=== PATIENT | male | born 1960 | race Caucasian/White ===

== ENCOUNTER 2021-01-21 09:40 | Observation (INO) | payer BC ==
[2021-01-21] MEDS ORDERED: SODIUM CHLORIDE 0.9% 500 ML 500 ML IV STA (09:52)
--- NOTE | 2021-01-21 10:00 | ED ---
General Adult HPI - General Chief complaint: Arrhythmia/Palpitations Stated complaint: Abnormal EKG/Irregular Heartbeat Time Seen by Provider: 01/21/21 09:40 Source: patient, RN notes reviewed, old records reviewed Mode of arrival: ambulatory Limitations: no limitations - History of Present Illness Initial comments: This is a 60-year-old male who presents emergency department stating that he went in for a physical today and they told him he had no irregular heartbeat probably atrial fibrillation they sent him into the emergency department. Patient denies any chest pain difficulty breathing or palpitations per patient denies any shortness of breath per patient denies any recent fever chills or cough. Patient states he did get Coban vaccine. Patient denies any previous history of similar. Patient denies any abdominal pain patient denies nausea vomiting or diarrhea. Patient denies any back pain. Patient denies any swelling to the legs or calf tenderness. Patient denies any history of diabetes hypertension high cholesterol. - Related Data Home Medications Medication Instructions Recorded Confirmed Montelukast Sodium [Singulair] 10 mg PO HS 01/21/21 01/21/21 Solifenacin Succinate [Vesicare] 10 mg PO HS 01/21/21 01/21/21 traZODone HCL [Desyrel] 50 mg PO HS 01/21/21 01/21/21 Allergies Allergy/AdvReac Type Severity Reaction Status Date / Time No Known Allergies Allergy Verified 01/21/21 11:22 Review of Systems ROS Statement: Those systems with pertinent positive or pertinent negative responses have been documented in the HPI. ROS Other: All systems not noted in ROS Statement are negative. Past Medical History History of Any Multi-Drug Resistant Organisms: None Reported Past Surgical History: No Surgical Hx Reported Past Psychological History: Anxiety, Depression Smoking Status: Never smoker Past Alcohol Use History: None Reported Past Drug Use History: None Reported General Exam - General Exam Comments Initial Comments: GENERAL: Patient is well-developed and well-nourished. Patient is nontoxic and well- hydrated and is in no acute distress. ENT: Neck is soft and supple. No significant lymphadenopathy is noted. Oropharynx is clear. Moist mucous membranes. Neck has full range of motion without eliciting any pain. EYES: The sclera were anicteric and conjunctiva were pink and moist. Extraocular movements were intact and pupils were equal round and reactive to light. Eyelids were unremarkable. PULMONARY: Unlabored respirations. Good breath sounds bilaterally. No audible rales rhonchi or wheezing was noted. CARDIOVASCULAR: Patient has no irregular heartbeat at approximately 80 beats a minute. ABDOMEN: Soft and nontender with normal bowel sounds. SKIN: Skin is clear with no lesions or rashes and otherwise unremarkable. NEUROLOGIC: Patient is alert and oriented x3. Cranial nerves II through XII are grossly intact. Motor and sensory are also intact. Normal speech, volume and content. Symmetrical smile. MUSCULOSKELETAL: Normal extremities with adequate strength and full range of motion. No lower extremity swelling or edema. No calf tenderness. LYMPHATICS: No significant lymphadenopathy is noted PSYCHIATRIC: Patient has a very flat affect and does answer all questions accurately. Limitations: no limitations Course Vital Signs 01/21/21 01/21/21 09:41 10:10 Temperature 99.1 F Pulse Rate 82 73 Respiratory 19 16 Rate Blood Pressure 156/90 134/88 O2 Sat by Pulse 98 Oximetry Medical Decision Making - Medical Decision Making EKG shows atrial fibrillation at 82 bpm MI interval 214 QT interval is 380 QTC is 443. Patient's EKG shows T-wave inversions in leads 1 to aVL as well as precordial leads V5 and V6. Patient was started on heparin in the emergency department for new onset A. fib. I spoke with Dr. Flores he agreed to admit the patient admitted the patient I consult cardiology continued heparin on the floor - Lab Data Result diagrams: 01/21/21 09:59 01/21/21 09:59 Lab Results 01/21/21 01/21/21 01/21/21 Range/Units 09:59 09:59 09:59 WBC 5.1 (3.8-10.6) k/uL RBC 5.35 (4.30-5.90) m/uL Hgb 16.7 (13.0-17.5) gm/dL Hct 48.7 (39.0-53.0) % MCV 91.0 (80.0-100.0) fL MCH 31.3 (25.0-35.0) pg MCHC 34.4 (31.0-37.0) g/dL RDW 12.9 (11.5-15.5) % Plt Count 205 (150-450) k/uL MPV 8.0 Neutrophils % 70 % Lymphocytes % 21 % Monocytes % 6 % Eosinophils % 2 % Basophils % 0 % Neutrophils # 3.6 (1.3-7.7) k/uL Lymphocytes # 1.1 (1.0-4.8) k/uL Monocytes # 0.3 (0-1.0) k/uL Eosinophils # 0.1 (0-0.7) k/uL Basophils # 0.0 (0-0.2) k/uL PT 10.0 (9.0-12.0) sec INR 0.9 (<1.2) APTT 24.6 (22.0-30.0) sec Sodium 139 (137-145) mmol/L Potassium 4.3 (3.5-5.1) mmol/L Chloride 104 (98-107) mmol/L Carbon Dioxide 26 (22-30) mmol/L Anion Gap 9 mmol/L BUN 22 H (9-20) mg/dL Creatinine 0.91 (0.66-1.25) mg/dL Est GFR (CKD-EPI)AfAm >90 (>60 ml/min/1.73 sqM) Est GFR (CKD-EPI)NonAf >90 (>60 ml/min/1.73 sqM) Glucose 122 H (74-99) mg/dL Calcium 9.7 (8.4-10.2) mg/dL Magnesium 2.0 (1.6-2.3) mg/dL Total Bilirubin 0.8 (0.2-1.3) mg/dL AST 26 (17-59) U/L ALT 22 (4-49) U/L Alkaline Phosphatase 73 (38-126) U/L Troponin I (0.000-0.034) ng/mL Total Protein 7.3 (6.3-8.2) g/dL Albumin 4.4 (3.5-5.0) g/dL TSH 0.812 (0.465-4.680) mIU/L 01/21/21 Range/Units 09:59 WBC (3.8-10.6) k/uL RBC (4.30-5.90) m/uL Hgb (13.0-17.5) gm/dL Hct (39.0-53.0) % MCV (80.0-100.0) fL MCH (25.0-35.0) pg MCHC (31.0-37.0) g/dL RDW (11.5-15.5) % Plt Count (150-450) k/uL MPV Neutrophils % % Lymphocytes % % Monocytes % % Eosinophils % % Basophils % % Neutrophils # (1.3-7.7) k/uL Lymphocytes # (1.0-4.8) k/uL Monocytes # (0-1.0) k/uL Eosinophils # (0-0.7) k/uL Basophils # (0-0.2) k/uL PT (9.0-12.0) sec INR (<1.2) APTT (22.0-30.0) sec Sodium (137-145) mmol/L Potassium (3.5-5.1) mmol/L Chloride (98-107) mmol/L Carbon Dioxide (22-30) mmol/L Anion Gap mmol/L BUN (9-20) mg/dL Creatinine (0.66-1.25) mg/dL Est GFR (CKD-EPI)AfAm (>60 ml/min/1.73 sqM) Est GFR (CKD-EPI)NonAf (>60 ml/min/1.73 sqM) Glucose (74-99) mg/dL Calcium (8.4-10.2) mg/dL Magnesium (1.6-2.3) mg/dL Total Bilirubin (0.2-1.3) mg/dL AST (17-59) U/L ALT (4-49) U/L Alkaline Phosphatase (38-126) U/L Troponin I <0.012 (0.000-0.034) ng/mL Total Protein (6.3-8.2) g/dL Albumin (3.5-5.0) g/dL TSH (0.465-4.680) mIU/L Critical Care Time Critical Care Time: Yes Total Critical Care Time: 35 Disposition Clinical Impression: New onset atrial fibrillation Disposition: ADMITTED IP TO THIS HOSP Referrals: Bennie Kent MD [Primary Care Provider] - 1-2 days Time of Disposition: 11:48
[2021-01-21 10:13] LABS: Basophils % (A) 0 %; Eosinophils # (A) 0.1 k/uL (0-0.7); Eosinophils % (A) 2 %; HCT 48.7 % (39.0-53.0); HGB 16.7 gm/dL (13.0-17.5); Lymphocytes # (A) 1.1 k/uL (1.0-4.8); Lymphocytes % (A) 21 %; MCH 31.3 pg (25.0-35.0); MCHC 34.4 g/dL (31.0-37.0); Monocytes # (A) 0.3 k/uL (0-1.0); Monocytes % (A) 6 %; Neutrophils # (A) 3.6 k/uL (1.3-7.7); Neutrophils % (A) 70 %; Platelet Count 205 k/uL (150-450); RBC 5.35 m/uL (4.30-5.90); RDW 12.9 % (11.5-15.5); WBC 5.1 k/uL (3.8-10.6)
[2021-01-21] MEDS ORDERED: HEPARIN SODIUM 1,000 UN/ML (10ML VL) IV ONE (10:13)
[2021-01-21 10:31] LABS: INR 0.9 (<1.2); Partial Thromboplastin Time 24.6 sec (22.0-30.0)
[2021-01-21] MEDS: HEPARIN SOD,PORK IN 0.45% NACL 25,000 UNIT in 0.45% NACL 1 250ML.BAG IV SCH (10:38)
[2021-01-21 10:52] LABS: ALT 22 U/L (4-49); AST 26 U/L (17-59); African American GFR (CKD) >90 (>60 ml/min/1.73 sqM); Albumin 4.4 g/dL (3.5-5.0); Alkaline Phosphatase 73 U/L (38-126); Anion Gap 9 mmol/L; Blood Urea Nitrogen 22 mg/dL (9-20); Calcium 9.7 mg/dL (8.4-10.2); Carbon Dioxide 26 mmol/L (22-30); Chloride 104 mmol/L (98-107); Glucose 122 mg/dL (74-99); Non-African American GFR(CKD) >90 (>60 ml/min/1.73 sqM); Potassium 4.3 mmol/L (3.5-5.1); Sodium 139 mmol/L (137-145); Total Bilirubin 0.8 mg/dL (0.2-1.3); Total Protein 7.3 g/dL (6.3-8.2)
[2021-01-21] MEDS ORDERED: NITROGLYCERIN SL TABS 0.4 MG TAB SUBLINGUAL PRN (11:49)
[2021-01-21 14:59] LABS: Amphetamine Screen,Urine Not Detected (NotDetected); Barbiturate Screen,Urine Not Detected (NotDetected); Benzodiazepines Screen,Urine Not Detected (NotDetected); Cocaine Screen,Urine Not Detected (NotDetected); Methadone Screen, Urine Not Detected (NotDetected); Opiate Screen,Urine Not Detected (NotDetected); Oxycodone Screen, Urine Not Detected (NotDetected); Phencyclidine Screen,Urine Not Detected (NotDetected); Tricyclic Antidepressant,Urine Not Detected (NotDetected); Urn Cannabinoid Scrn Not Detected (NotDetected)
[2021-01-21] MEDS: NITROGLYCERIN OINT 1 INCH/GM PACKET TOPICAL SCH ×3 (15:23→23:45)
--- NOTE | 2021-01-21 15:27 | XR ---
EXAMINATION TYPE: XR chest 2V DATE OF EXAM: 01/21/2021 COMPARISON: None INDICATION: Dysrhythmia TECHNIQUE: Frontal and lateral views of the chest are obtained. FINDINGS: The heart size is normal. The pulmonary vasculature is normal. The lungs are clear. IMPRESSION: 1. No acute pulmonary process.
[2021-01-21 17:15] VITALS: RESP 18
[2021-01-21] MEDS ORDERED: ACETAMINOPHEN TAB 325 MG TAB PO PRN (19:05)
[2021-01-21] MEDS: HYDROcodone/APAP 5-325MG 1 EACH TAB PO PRN (20:21)
--- NOTE | 2021-01-21 22:02 | P.HPIM ---
History of Present Illness H&P Date: 01/21/21 Chief Complaint: Irregular heart rhythm Patient is a 60-year-old male with known history of anxiety/depression and bladder spasms were sent to ER from PCPs office due to newly diagnosed atrial fibrillation. Patient went to his PCP for annual physical exam and was told he has irregular rhythm. Otherwise patient denied any complaints of chest pain. No palpitations. Denied any shortness of breath. Denied any recent illnesses. No fever no chills. No cough or sputum production. No nausea vomiting or abdominal pain or diarrhea. No dizziness or lightheadedness. Denied any leg swelling. Chest x-ray showed no acute pulmonary process. EKG showed atrial fibrillation with heart rate eighty-two. Laboratory showed TSH 0.812 UDS negative and COVID-19 PCR not detected Patient is vaccinated for COVID-19 virus. Other lab data reviewed. BUN 22 creatinine 0.91 Review of Systems Constitutional: Patient denies any fever or chills . No generalized weakness or weight loss. Abdomen: Patient denied nausea vomiting and diarrhea and abdominal pain. Cardiovascular: Patient denies any chest pain or short of breath no palpitations. Respiratory: patient denied any cough or sputum production. No shortness of breath Neurologic: Patient denied any numbness or tingling headache. Musculoskeletal: Patient denies any complaints of joint swelling or deformity. Skin: Negative Psychiatric: Negative Endocrine: No heat or cold intolerance. No recent weight gain. Genitourinary: No dysuria or hematuria. All other 14 point ROS negative except the above Past Medical History History of Any Multi-Drug Resistant Organisms: None Reported Past Surgical History: No Surgical Hx Reported Past Psychological History: Anxiety, Depression Smoking Status: Never smoker Past Alcohol Use History: None Reported Past Drug Use History: None Reported Medications and Allergies Home Medications Medication Instructions Recorded Confirmed Type Montelukast Sodium [Singulair] 10 mg PO HS 01/21/21 01/21/21 History Solifenacin Succinate [Vesicare] 10 mg PO HS 01/21/21 01/21/21 History traZODone HCL [Desyrel] 50 mg PO HS 01/21/21 01/21/21 History Allergies Allergy/AdvReac Type Severity Reaction Status Date / Time No Known Allergies Allergy Verified 01/21/21 11:22 Physical Exam Vitals: Vital Signs Temp Pulse Resp BP Pulse Ox 01/21/21 12:00 97.9 F 75 16 145/108 98 01/21/21 10:10 73 16 134/88 01/21/21 09:41 99.1 F 82 19 156/90 98 Intake and Output 01/20/21 01/21/21 01/21/21 22:59 06:59 14:59 Other: Weight 95.254 kg PHYSICAL EXAMINATION: Patient is lying in the bed comfortably, no acute distress, awake alert and oriented.. HEENT: Normocephalic. Neck is supple. Pupils reactive. Nostrils clear. Oral cavity is moist. Neck reveals no JVD, carotid bruits, or thyromegaly. CHEST EXAMINATION: Trachea is central. Symmetrical expansion. Lung lujan clear to auscultation and percussion. CARDIAC: Normal S1, S2 with no gallops. No murmurs Irregularly irregular rhythm ABDOMEN: Soft. Bowel sounds normal. No organomegaly. No abdominal bruits. Extremities: reveal no edema. No clubbing or cyanosis Neurologically awake, alert, oriented x3 with well-coordinated movements. No focal deficits noted Skin: No rash or skin lesions. Psychiatric: Cooperative. Nonsuicidal Musculoskeletal: No joint swelling or deformity. Normal range of motion. Results CBC & Chem 7: 01/21/21 09:59 01/21/21 09:59 Labs: Abnormal Lab Results - Last 24 Hours (Table) 01/21/21 Range/Units 09:59 BUN 22 H (9-20) mg/dL Glucose 122 H (74-99) mg/dL Thrombosis Risk Factor Assmnt - DVT/VTE Prophylaxis DVT/VTE Prophylaxis: Pharmacologic Prophylaxis ordered Assessment and Plan Assessment: New onset atrial fibrillation with controlle d rate Anxiety/depression History of bladder spasms Plan: Patient will be continued on telemetry monitoring. Started on heparin drip. Cardiology was consulted for possible cardioversion. Continue dual medications and follow-up closely. TSH within normal limits.
[2021-01-22] MEDS: HYDROcodone/APAP 5-325MG 1 EACH TAB PO PRN (02:24)
[2021-01-22] MEDS: NITROGLYCERIN OINT 1 INCH/GM PACKET TOPICAL SCH ×2 (06:23→13:32)
[2021-01-22] MEDS: HEPARIN SOD,PORK IN 0.45% NACL 25,000 UNIT in 0.45% NACL 1 250ML.BAG IV SCH (07:46)
[2021-01-22 08:54] VITALS: BP 137/96; PULSE 65; TEMP 97.8
[2021-01-22] MEDS ORDERED: ASPIRIN 325 MG TAB PO SCH (09:00)
[2021-01-22] MEDS ORDERED: APIXABAN 5 MG TAB PO SCH (10:00)
[2021-01-22] MEDS ORDERED: lisinopriL 5 MG TAB PO SCH (10:00)
[2021-01-22 10:02] LABS: LDL Cholesterol,Calculated 127.4 mg/dL (0.0-131.0)
--- NOTE | 2021-01-22 13:52 | P.CRDCN ---
History of Present Illness Consult date: 01/22/21 History of present illness: this is a 60-year-old gentleman with history of anxiety and depression went to see his primary care physician. He was found to have irregular heart rhythm and evidence of atrial fibrillation. Rate is controlled in the range of 70-80. Patient had no symptoms of chest pain, shortness of breath or palpitations. No dizziness or syncope. His lab values showed normal electrolytes. His thyroid function test is within normal limits. His Covid test is negative. Overall, patient is clinically stable. He is initiated on heparin drip. We'll change to by mouth anticoagulants. Patient could be discharged home. He will have outpatient echocardiogram. May be considered for cardioversion in the near future. No history of hypertension, diabetes, previous CVA or congestive heart failure Review of Systems as per the chart Past Medical History Past Medical History: No Reported History History of Any Multi-Drug Resistant Organisms: None Reported Past Surgical History: No Surgical Hx Reported Past Psychological History: Anxiety, Depression Smoking Status: Never smoker Past Alcohol Use History: None Reported Past Drug Use History: None Reported Medications and Allergies Home Medications Medication Instructions Recorded Confirmed Type Montelukast Sodium [Singulair] 10 mg PO HS 01/21/21 01/21/21 History Solifenacin Succinate [Vesicare] 10 mg PO HS 01/21/21 01/21/21 History traZODone HCL [Desyrel] 50 mg PO HS 01/21/21 01/21/21 History Apixaban [Eliquis] 5 mg PO BID #60 tab 01/22/21 Rx lisinopriL [Zestril] 5 mg PO DAILY #30 tab 01/22/21 Rx Allergies Allergy/AdvReac Type Severity Reaction Status Date / Time No Known Allergies Allergy Verified 01/21/21 11:22 Physical Exam Vitals: Vital Signs Temp Pulse Pulse Resp BP BP Pulse Ox 01/22/21 08:00 65 18 01/22/21 07:00 97.8 F 65 18 137/96 97 01/22/21 02:00 97.7 F 87 18 152/92 96 01/21/21 20:06 98.4 F 74 18 155/95 98 01/21/21 19:47 18 01/21/21 15:00 97.7 F 78 18 162/95 96 01/21/21 14:52 98.0 F 76 16 139/95 97 Intake and Output 01/21/21 01/22/21 01/22/21 22:59 06:59 14:59 Intake Total 77.333 172.667 118 Balance 77.333 172.667 118 Intake: Intake, IV Titration 77.333 172.667 Amount Heparin Sod,Pork in 0.45% 77.333 172.667 NaCl 25,000 unit In 0.45 % NaCl 1 250ml.bag @ 10. 498 UNITS/KG/HR 10 mls/hr IV .Q24H [facility] Rx#: [id number] Oral 118 Other: # Voids 2 2 Weight 95.254 kg GENERAL EXAM: Patient is alert and oriented and doesn't appear to be in any acute distress HEENT: Normocephalic. Normal reaction of pupils, equal size, normal range of extraocular motion. No erythema or exudates in the throat. NECK: No masses, no nuchal rigidity. CHEST: No chest wall deformity.accept default's LUNGS: [Equal air entry with no crackles or wheeze.] HEART: [S1 and S2 normal with no audible mumurs or gallops. Regular rhythm, femorals equal on both sides.. ABDOMEN: No hepatosplenomegaly, normal bowel sounds, no guarding or rigidity. SKIN: No rashes CENTRAL NERVOUS SYSTEM: No focal deficits. EXTREMITIES: [No cyanosis, clubbing or edema. Results 01/21/21 09:59 01/21/21 09:59 Cardiac Enzymes 01/21/21 01/21/21 Range/Units 14:30 17:42 Troponin I 0.019 <0.012 (0.000-0.034) ng/mL Coagulation 01/21/21 01/22/21 01/22/21 Range/Units 17:42 00:25 06:08 APTT 31.9 H 33.9 H 42.6 H (22.0-30.0) sec Lipids 01/22/21 Range/Units 06:08 Triglycerides 260.00 H (0.00-149.00) mg/dL Cholesterol 212.00 H (0.00-200.00) mg/dL HDL Cholesterol 32.60 L (40.00-60.00) mg/dL Cholesterol/HDL Ratio 6.50 Ratio Current Medications Generic Name Dose Route Start Last Admin Trade Name Freq PRN Reason Stop Dose Admin Acetaminophen 650 mg 01/21/21 19:05 01/21/21 19:24 Acetaminophen Tab 325 Mg Tab PO 650 mg Q6HR PRN Administration Fever and/ or Pain Hydrocodone Bitart/Acetaminophen 1 each 01/21/21 20:16 01/22/21 02:24 Hydrocodone/Apap 5-325mg 1 Each Tab PO 1 each Q6HR PRN Administration Pain Apixaban 5 mg 01/22/21 10:00 01/22/21 11:17 Apixaban 5 Mg Tab PO 5 mg BID LUISA Administration Protocol Aspirin 325 mg 01/22/21 09:00 01/22/21 07:47 Aspirin 325 Mg Tab PO 325 mg DAILY LUISA Administration Lisinopril 5 mg 01/22/21 10:00 01/22/21 11:18 Lisinopril 5 Mg Tab PO 5 mg DAILY LUISA Administration Melatonin 6 mg 01/22/21 21:00 01/22/21 02:25 Melatonin 3 Mg Tablet PO 6 mg HS LUISA Administration Nitroglycerin 0.4 mg 01/21/21 11:49 Nitroglycerin Sl Tabs 0.4 Mg Tab SUBLINGUAL Q5M PRN Chest Pain Nitroglycerin 1 inch 01/21/21 12:00 01/22/21 13:32 Nitroglycerin Oint 1 Inch/Gm Packet TOPICAL Not Given Q6HR LUISA Intake and Output 01/21/21 01/22/21 01/22/21 22:59 06:59 14:59 Intake Total 77.333 172.667 118 Balance 77.333 172.667 118 Intake: Intake, IV Titration 77.333 172.667 Amount Heparin Sod,Pork in 0.45% 77.333 172.667 NaCl 25,000 unit In 0.45 % NaCl 1 250ml.bag @ 10. 498 UNITS/KG/HR 10 mls/hr IV .Q24H [facility] Rx#: [id number] Oral 118 Other: # Voids 2 2 Weight 95.254 kg 01/21/21 09:59 01/21/21 09:59 EKG Interpretations (text) atrial fibrillation with controlled ventricular response Assessment and Plan (1) Hypertension, essential Current Visit: Yes Status: Acute Code(s): I10 - ESSENTIAL (PRIMARY) HYPER TENSION SNOMED Code(s): 25103298 (2) New onset atrial fibrillation Current Visit: Yes Status: Acute Code(s): I48.91 - UNSPECIFIED ATRIAL FIBRILLATION SNOMED Code(s): 39892566 (3) Depression Current Visit: Yes Status: Acute Code(s): F32.A - SNOMED Code(s): 74099558 Plan: patient will be discharged home on anticoagulation therapy and lisinopril. Follow-up in the office in one week
[2021-01-22] MEDS ORDERED: MELATONIN 3 MG TABLET PO SCH (21:00)
== END 2021-01-22 14:14 | disposition home or self-care (01) ==
LOC: EC 09:40 → 6NMEDSUR 11:51
PROVIDERS: ADMIT Internal Medicine; ATTEND Internal Medicine
DX: I48.91 Unspecified atrial fibrillation (principal); I10 Essential (primary) hypertension; N32.89 Other specified disorders of bladder; F32.9 Major depressive disorder, single episode, unspecified; F41.9 Anxiety disorder, unspecified; Z20.822 Contact with and (suspected) exposure to COVID-19; Z79.899 Other long term (current) drug therapy
CPT/HCPCS: 96366 ×3; 96376; 96365; 99291; 36415; 93005; 80061; 80053; 83735; 84443; 84484; 85025; 85610; 85730 ×2; 80306; 87635; 71046; G0378 ×2; J1644 ×3

== ENCOUNTER 2021-06-15 06:52 | Day surgery (SDC) | payer BC ==
[~2021-06-15 06:52] MED LIST: LACTATED RINGERS 1,000 ML IV SCH; LIDOCAINE 1% (10MG/ML) FOR IV START INTRADERMA PRN; SODIUM CHLORIDE 0.9% 1,000 ML IV SCH
[2021-06-15 07:41] VITALS: TEMP 97.9
[2021-06-15 07:49] LABS: INR 2.2 (<1.2); Prothrombin Time 22.5 sec (9.0-12.0)
[2021-06-15 07:58] LABS: African American GFR (CKD) >90 (>60 ml/min/1.73 sqM); Anion Gap 6 mmol/L; Blood Urea Nitrogen 21 mg/dL (9-20); Calcium 8.6 mg/dL (8.4-10.2); Carbon Dioxide 27 mmol/L (22-30); Chloride 106 mmol/L (98-107); Glucose 115 mg/dL (74-99); Non-African American GFR(CKD) >90 (>60 ml/min/1.73 sqM); Sodium 139 mmol/L (137-145)
[2021-06-15 08:05] LABS: Potassium 4.5 mmol/L (3.5-5.1)
[2021-06-15] MEDS ORDERED: PROPOFOL 10 MG/ML 20 ML VIAL IV ONE (09:12)
[2021-06-15] MEDS ORDERED: SODIUM CHLORIDE 0.9% 1,000 ML IV SCH (09:45)
[2021-06-15 09:51] VITALS: RESP 16
--- NOTE | 2021-06-15 10:31 | P.PCN ---
Date of Procedure: 06/15/21 Preoperative Diagnosis: Atrial fibrillation with controlled and corresponds Postoperative Diagnosis: Successful conversion to sinus rhythm Procedure(s) Performed: Cardioversion Description of Procedure: Patient was brought to the lab in a fasting state. He was prepped and draped in the usual fashion. Department of anesthesia give him IV anesthesia. Anterior posterior paddles were applied. To see, shocks up 100 J, followed by 200 J was applied. Patient converted to sinus rhythm after the second shock. No immediate complications. Final impression: Successful cardioversion. Plan: Patient will be monitored for 2-3 hours. If stable patient will be discharged home. Follow-up in the office in one week
[2021-06-15 10:49] VITALS: PULSE 68
[2021-06-15 10:50] VITALS: BP 118/74
== END 2021-06-15 10:49 | disposition home or self-care (01) ==
LOC: CATHCVL 06:52
PROVIDERS: ATTEND Internal Medicine Cardiovascular Disease
DX: I48.19 Other persistent atrial fibrillation (principal); I10 Essential (primary) hypertension; F32.A Depression, unspecified; Z79.01 Long term (current) use of anticoagulants; Z20.822 Contact with and (suspected) exposure to COVID-19; Z79.899 Other long term (current) drug therapy
CPT/HCPCS: 92960; 80048; 85610; 87635; J2704

== ENCOUNTER → 2021-06-29 | Outpatient (CLI) | payer BC ==
[2021-06-29 23:23] LABS: Basophils # (A) 0.02 X 10*3/uL (0.00-0.10); Basophils % (A) 0.3 %; Eosinophils # (A) 0.05 X 10*3/uL (0.04-0.35); Eosinophils % (A) 0.7 %; HGB 15.8 g/dL (13.0-17.0); Immature Grans, Automated 0.3 %; Lymphocytes # (A) 1.72 X 10*3/uL (0.90-5.00); Lymphocytes % (A) 25.7 %; MCHC 32.2 g/dL (32.0-37.0); MCV 89.9 fL (80.0-97.0); Mean Platelet Volume 11.4 fL (9.5-12.2); Monocytes # (A) 0.43 X 10*3/uL (0.20-1.00); Monocytes % (A) 6.4 %; NRBC Per 100 WBC 0 /100 WBCS (0.0-0.0); Neutrophils # (A) 4.45 X 10*3/uL (1.80-7.70); Neutrophils % (A) 66.6 %; Platelet Count 246 X 10*3/uL (140-440); RBC 5.45 X 10*6/uL (4.40-5.60); RDW 12.7 % (11.5-14.5); WBC 6.69 X 10*3/uL (4.50-10.00)
== END | disposition home or self-care (01) ==
LOC: LABPAT 14:46
PROVIDERS: ATTEND Surgery
DX: Z01.812 Encounter for preprocedural laboratory examination (principal); K40.30 Unilateral inguinal hernia, with obstruction, without gangrene, not specified as recurrent
CPT/HCPCS: 36415; 85025

== ENCOUNTER 2021-07-05 06:07 | Day surgery (SDC) | payer BC ==
[2021-07-04 09:41] VITALS: BMI 27.1
[~2021-07-05 06:07] MED LIST changes: +ACETAMINOPHEN TAB 500 MG TAB PO PRN; +HEPARIN SODIUM,PORCINE/PF 5,000 UNIT/0.5 ML SYRINGE SQ PRN; -SODIUM CHLORIDE 0.9% 1,000 ML IV SCH
[2021-07-05] MEDS ORDERED: DEXAMETHASONE SOD PHOSPHATE 4 MG/ML 1 ML VIAL IV ONE (06:13)
[2021-07-05] MEDS ORDERED: ONDANSETRON 4 MG/2 ML VIAL IVP ONE (06:13)
[2021-07-05] MEDS ORDERED: LACTATED RINGERS 1,000 ML IV SCH (06:13)
[2021-07-05] MEDS ORDERED: LIDOCAINE 1% (10MG/ML) FOR IV START INTRADERMA PRN (06:13)
[2021-07-05 06:59] LABS: Glucose,Whole Blood 102 mg/dL (75-99)
[2021-07-05] MEDS ORDERED: HYDROmorphone 0.5 MG/0.5 ML SYRINGE IVP PRN ×2 (07:00)
[2021-07-05 07:28] LABS: Prothrombin Time 11.1 sec (9.0-12.0)
[2021-07-05] MEDS ORDERED: fentaNYL (PF) 50 MCG/ML 2 ML AMP IVP ONE (07:40)
[2021-07-05] MEDS ORDERED: MIDAZOLAM 2 MG/2 ML VIAL IVP ONE (07:40)
[2021-07-05] MEDS ORDERED: NEOSTIGMINE 1 MG/ML 10 ML VIAL ONE (07:45)
[2021-07-05] MEDS ORDERED: GLYCOPYRROLATE 0.2 MG/ML 2 ML VIAL ONE (07:45)
[2021-07-05] MEDS ORDERED: PROPOFOL 10 MG/ML 20 ML VIAL IV ONE (07:45)
[2021-07-05] MEDS ORDERED: ROCURONIUM 10 MG/ML (5 ML VIAL) IV ONE (07:45)
[2021-07-05] MEDS ORDERED: SODIUM CHLORIDE 0.9% (PF) 10 ML VIAL ONE (07:45)
[2021-07-05] MEDS ORDERED: PHENYLEPHRINE-0.9% NACL SYG 1,000 MCG/10 ML SYRINGE ONE (07:45)
[2021-07-05] MEDS ORDERED: SUCCINYLCHOLINE CHLORIDE 100 MG/5 ML SYR IV ONE (07:45)
[2021-07-05] MEDS ORDERED: ePHEDrine 50 MG/ML 1 ML VIAL ONE (07:45)
[2021-07-05] MEDS ORDERED: LABETALOL 5 MG/ML VIAL MDV ONE (07:45)
[2021-07-05] MEDS ORDERED: KETOROLAC 15 MG/ML 1 ML VIAL ONE (07:45)
[2021-07-05] MEDS ORDERED: fentaNYL (PF) 50 MCG/ML 2 ML AMP ONE (07:45)
[2021-07-05] MEDS ORDERED: LIDOCAINE 2% INJ 20 MG/ML (2 ML VIAL) ONE (07:45)
[2021-07-05] MEDS ORDERED: BUPIVACAIN-EPI 0.25%-1:200,000 30 ML VIAL SQ ONE ×3 (07:45→08:12)
[2021-07-05] MEDS ORDERED: ROPIVACAINE 5 MG/ML 30 ML VIAL ONE (07:45)
[2021-07-05] MEDS ORDERED: KETAMINE 10 MG/ML 20 ML VIAL ONE (07:45)
[2021-07-05] MEDS ORDERED: LACTATED RINGERS 1,000 ML IV ONE (08:53)
[2021-07-05 09:19] VITALS: TEMP 96.8
--- NOTE | 2021-07-05 09:19 | P.GSHP ---
History of Present Illness H&P Date: 07/05/21 Chief Complaint: Left inguinal hernia This is a 61-year-old male who has complaints of left inguinal pain. Patient seen in the office and found have an incarcerated left femoral hernia. He presents today for laparoscopic robotic system repair. Past Medical History Past Medical History: Atrial Fibrillation, Hypertension Additional Past Medical History / Comment(s): FREQUENT NIGHT TIME URINATION., LEFT INGUINAL HERNIA History of Any Multi-Drug Resistant Organisms: None Reported Past Surgical History: No Surgical Hx Reported Additional Past Surgical History / Comment(s): CARDIOVERSION 06/15/21 Past Anesthesia/Blood Transfusion Reactions: No Reported Reaction Past Psychological History: Anxiety, Depression Smoking Status: Never smoker Past Alcohol Use History: Occasional Past Drug Use History: Marijuana Medications and Allergies Home Medications Medication Instructions Recorded Confirmed Type Montelukast Sodium [Singulair] 10 mg PO HS 01/21/21 07/05/21 History Solifenacin Succinate [Vesicare] 10 mg PO HS 01/21/21 07/05/21 History traZODone HCL [Desyrel] 50 mg PO HS 01/21/21 07/05/21 History Warfarin [Coumadin] 5 mg PO HS 06/15/21 07/05/21 History lisinopriL [Zestril] 5 mg PO HS 06/15/21 07/05/21 History Aspirin [Adult Low Dose Aspirin EC] 243 mg PO DAILY 07/04/21 07/05/21 History Allergies Allergy/AdvReac Type Severity Reaction Status Date / Time No Known Allergies Allergy Verified 07/05/21 06:34 Surgical - Exam Vital Signs Temp Pulse Resp BP Pulse Ox 96.6 F L 75 16 143/82 96 07/05/21 06:33 07/05/21 06:33 07/05/21 06:33 07/05/21 06:33 07/05/21 06:33 - General well developed, well nourished, no distress - Eyes PERRL - ENT normal pinna - Neck no masses - Respiratory normal expansion - Cardiovascular Rhythm: regular - Abdomen Abdomen: soft, non tender Hernia: inguinal (Incarcerated left inguinal hernia) Results - Labs Abnormal Lab Results - Last 24 Hours (Table) 07/05/21 Range/Units 06:49 POC Glucose (mg/dL) 102 H (75-99) mg/dL Assessment and Plan Assessment: Left inguinal hernia. We'll perform laparoscopic robotic system repair.
--- NOTE | 2021-07-05 09:24 | P.OP ---
Date of Procedure: 07/05/21 Preoperative Diagnosis: Left inguinal hernia Postoperative Diagnosis: Bilateral inguinal hernia Procedure(s) Performed: Laparoscopic repair of bilateral inguinal hernia Laparoscopic excision of bilateral cord lipoma Transversus abdominis plane block Anesthesia: JERRY Surgeon: Robert Acosta Estimated Blood Loss (ml): 5 Pathology: other (Bilateral cord lipoma) Condition: stable Disposition: PACU Description of Procedure: The patient's placed on the operating table in the supine position. The patient received general anesthesia. The patient's abdomen was prepped and draped in usual sterile fashion. The skin was anesthetized 1% local Xylocaine at the incision sites. Using an 11 blade a skin incision was made at the umbilicus. The fascia was grasped with a Minto and then the peritoneal cavity was entered with the Veress needle. Position of the Veress needle was confirmed with a positive drop test. After adequate insufflation a 5 mm trocar was placed into the peritoneal cavity. The Laparoscope was placed the peritoneal cavity. A four-quadrant transversus abdominal plain block was then performed using 1% local Xylocaine. And a robotic 8 mm trocar was placed in the right lateral position and then another 8 mm robotic trochars placed in the left lateral position. The original 5 mm trocar was exchanged for a 12 mm trocar. The patient was placed in reverse Trendelenburg and then the patient was docked to the robot. Next the peritoneum over top of the right inguinal hernia was incised and then using blunt and sharp dissection and electrocautery the hernia sac was dissected free from the floor of the inguinal canal. The cord lipoma was dissected free to pathology The hernia sac was completely reduced into the peritoneal cavity. And then using the Pro basting marker mesh the hernia was repaired. The peritoneum was then sutured with 20V lock suture. Next the peritoneum over top of the left inguinal hernia was incised and then using blunt and sharp dissection and electrocautery the hernia sac was dissected free from the floor of the inguinal canal. The cord lipoma was dissected free and sent to pathology The hernia sac was completely reduced into the peritoneal cavity. And then using the Pro basting marker mesh the hernia was repaired. The peritone um was then sutured with 20V lock suture. The patient was then undocked the robot. The needle was withdrawn from the peritoneal cavity. The umbilical trocar site was closed with 0 Ethibond suture. The skin was closed interrupted 3-0 Monocryl suture. Dermabond dressing was applied. Patient was sent to recovery in stable condition.
[2021-07-05 09:53] VITALS: RESP 18
[2021-07-05 10:32] VITALS: BP 128/74; PULSE 70
--- NOTE | 2021-07-05 10:55 | P.ANPRN ---
Procedure Note - Anesthesia - Nerve Block Performed Bilateral Erector Spinae Single Time Out Performed: Yes ([id number]) Date of Procedure: 07/05/21 Procedure Start Time: 07:38 Procedure Stop Time: 07:44 Location of Patient: PreOp Indication: Acute Post-Operative Pain, Requested by Surgeon Specifically requested for management of pain by DrMary: Robert Acosta Sedation Type: Sedate with meaningful contact maintained Preparation: Sterile Prep Position: Prone Catheter: None Needle Types: Pajunk Needle Gauge: 21 Ultrasound used to visualize needle placement: Yes Ultrasound used to observe medication spread: Yes Injectate: 0.5% Ropivacaine (see comment for volume) (15cc + 15cc nacl pf) Blood Aspirated: No Pain Paresthesia on Injection Noted: No Resistance on Injection: Normal Image Stored and Saved: Yes Events: Uneventful and Well Tolerated
== END 2021-07-05 10:58 | disposition home or self-care (01) ==
LOC: OR 06:07
PROVIDERS: ATTEND Surgery
DX: K40.30 Unilateral inguinal hernia, with obstruction, without gangrene, not specified as recurrent (principal); K40.20 Bilateral inguinal hernia, without obstruction or gangrene, not specified as recurrent; I10 Essential (primary) hypertension; I48.91 Unspecified atrial fibrillation; Z79.82 Long term (current) use of aspirin; G89.18 Other acute postprocedural pain
CPT/HCPCS: 49650; 55520; 64486; 64999; 86900; 86901; 88304; 85610; 86850; C1781 ×2; J2250; J1100; J2710; J0690; J2405; J3010; J2795; J1885; J2370; J0330; J2704; J1644; J2001

== ENCOUNTER → 2021-12-12 | Day surgery (SDC) | payer BC ==
[2021-12-11 09:27] VITALS: BMI 27.1
[~2021-12-12] MED LIST changes: -ACETAMINOPHEN TAB 500 MG TAB PO PRN; -HEPARIN SODIUM,PORCINE/PF 5,000 UNIT/0.5 ML SYRINGE SQ PRN; +LIDOCAINE 2% INJ 20 MG/ML (2 ML VIAL) ONE; +ONDANSETRON 4 MG/2 ML VIAL IVP PRN; +PROPOFOL 10 MG/ML 20 ML VIAL IV ONE
[2021-12-12 10:00] VITALS: TEMP 97
--- NOTE | 2021-12-12 10:05 | P.GSHP ---
History of Present Illness H&P Date: 12/12/21 Chief Complaint: Colon cancer screening 61-year-old male here today for colonoscopy. He has not had one previously. No bowel complaints. No family history of colon cancer. Past Medical History Past Medical History: Atrial Fibrillation, Hypertension Additional Past Medical History / Comment(s): FREQUENT NIGHT TIME URINATION., LEFT INGUINAL HERNIA History of Any Multi-Drug Resistant Organisms: None Reported Past Surgical History: Hernia Repair Additional Past Surgical History / Comment(s): CARDIOVERSION. Past Anesthesia/Blood Transfusion Reactions: No Reported Reaction Past Psychological History: No Psychological Hx Reported Smoking Status: Former smoker Past Alcohol Use History: Occasional Additional Past Alcohol Use History / Comment(s): QUIT SMOKING 10 YRS AGO., Past Drug Use History: Marijuana Additional Drug Use History / Comment(s): CURRENT MARIJUANA USE - Past Family History Mother Family Medical History: No Reported History Medications and Allergies Home Medications Medication Instructions Recorded Confirmed Type Montelukast Sodium [Singulair] 10 mg PO HS 01/21/21 12/11/21 History Solifenacin Succinate [Vesicare] 10 mg PO HS 01/21/21 12/11/21 History traZODone HCL [Desyrel] 50 mg PO HS 01/21/21 12/11/21 History Warfarin [Coumadin] 5 mg PO HS 06/15/21 12/11/21 History lisinopriL [Zestril] 5 mg PO HS 06/15/21 12/11/21 History Mens Health Vitamin Pack 1 dose PO DAILY 12/11/21 History Tylenol Headache 1 dose PO DIRECTED PRN 12/11/21 History Allergies Allergy/AdvReac Type Severity Reaction Status Date / Time No Known Allergies Allergy Verified 12/11/21 09:04 Surgical - Exam Vital Signs Temp Pulse Resp Pulse Ox 97 F L 68 20 97 12/12/21 09:56 12/12/21 09:56 12/12/21 09:56 12/12/21 09:56 Physical exam: General: Well-developed, well-nourished HEENT: Normocephalic, sclerae nonicteric Abdomen: Nontender, nondistended Extremities: No edema Neuro: Alert and oriented Assessment and Plan (1) Colon cancer screening Narrative/Plan: Will proceed with colonoscopy at this time. Current Visit: Yes Status: Acute Code(s): Z12.11 - ENCOUNTER FOR SCREENING FOR MALIGNANT NEOPLASM OF COLON SNOMED Code(s): 066662875
--- NOTE | 2021-12-12 10:27 | P.PCN ---
Date of Procedure: 12/12/21 Procedure(s) Performed: PREOPERATIVE DIAGNOSIS: Colon cancer screening POSTOPERATIVE DIAGNOSIS: Tortuous colon, slightly poor prep PROCEDURE: Colonoscopy ANESTHESIA: MAC SURGEON: Frank Stout M.D. SPECIMENS: None ENDOSCOPIC PROCEDURE: The patient was placed on the endoscopy table in the left decubitus position. The Olympus colonoscope was inserted into the anus and passed under direct visualization to the proximal to mid ascending colon. I could visualize the cecum from a distance. No definite abnormalities were noted. The patient was placed in multiple positions to try to get the scope to advance more proximally. Unfortunately we were unable to do so. The patient's prep was somewhat poor and there was some retained liquid and solid stool seen throughout the colon but more on the right side of the colon. The scope was withdrawn slowly. There were no visualized neoplastic inflammatory or polypoid lesions throughout the cecum, ascending, transverse, descending, sigmoid and rectum. There was mild to moderate left sided diverticulosis noted. Digital rectal examination was normal. The patient was taken to the recovery room in stable condition per anesthesia guidelines. RECOMMENDATIONS: Resume diet. Repeat colonoscopy in 10 years. Could consider shorter-term cologuard test given the difficulties with limitations of today's study.
[2021-12-12 10:30] VITALS: RESP 16
[2021-12-12 10:44] VITALS: BP 123/80; PULSE 81
== END ==
LOC: ORWHC2ENDO 09:37
PROVIDERS: ATTEND Surgery
DX: Z12.11 Encounter for screening for malignant neoplasm of colon (principal); I10 Essential (primary) hypertension; I48.91 Unspecified atrial fibrillation; Z87.891 Personal history of nicotine dependence; Z79.899 Other long term (current) drug therapy; K56.2 Volvulus
CPT/HCPCS: 45378; J2704; J2001; 86850; 86900; 86901

== ENCOUNTER 2022-02-06 07:08 | Day surgery (SDC) | payer BC ==
[~2022-02-06 07:08] MED LIST changes: -LIDOCAINE 1% (10MG/ML) FOR IV START INTRADERMA PRN; -LIDOCAINE 2% INJ 20 MG/ML (2 ML VIAL) ONE; -ONDANSETRON 4 MG/2 ML VIAL IVP PRN; -PROPOFOL 10 MG/ML 20 ML VIAL IV ONE; +SODIUM CHLORIDE 0.9% 1,000 ML IV SCH
[2022-02-06] MEDS ORDERED: SODIUM CHLORIDE 0.9% 500 ML 500 ML IV ONE (07:22)
[2022-02-06 07:36] VITALS: RESP 16
[2022-02-06 07:58] LABS: African American GFR (CKD) >90 (>60 ml/min/1.73 sqM); Anion Gap 6 mmol/L; Blood Urea Nitrogen 22 mg/dL (9-20); Calcium 8.8 mg/dL (8.4-10.2); Carbon Dioxide 27 mmol/L (22-30); Chloride 107 mmol/L (98-107); Glucose 119 mg/dL (74-99); INR 1.4 (<1.2); Non-African American GFR(CKD) >90 (>60 ml/min/1.73 sqM); Potassium 4.4 mmol/L (3.5-5.1); Prothrombin Time 13.8 sec (9.0-12.0); Sodium 140 mmol/L (137-145)
[2022-02-06] MEDS ORDERED: HEPARIN SODIUM 1,000 UN/ML (10ML VL) IVP ONE (08:10)
[2022-02-06] MEDS ORDERED: PROPOFOL 10 MG/ML 20 ML VIAL IV ONE (09:00)
[2022-02-06] MEDS ORDERED: APIXABAN 5 MG TAB PO SCH (09:00)
--- NOTE | 2022-02-06 09:15 | P.TEE ---
Description of Procedure(s): Procedure performed: Transesophageal Echocardiogram with color flow doppler, pulsed wave doppler and continuous wave doppler, Synchronized cardioversion Moderate conscious sedation: Moderate conscious sedation was supplied by anesthesia, see separate report Complications: none Indications: Symptomatic Afib History: Patient has subtheraputic INR and therefore given Eliquis and heparin and will be sent home on Eliquis samples PROCEDURE: After the risks, benefits and alternatives of the above mentioned procedure was explained in detail with the patient, informed consent was obtained. Patient was brought to the lab in a fasting state. Patient was given sedation by anesthesia. The throat was sprayed with Hurricane to anesthetize the throat. A lubricated Omni probe was then introduced into the esophagus and stomach and multiple views were obtained. 2D echo with color flow doppler, pulsed wave doppler and continuous wave doppler was utilized. Agitated saline bubbles were injected to assess for any intra-atrial shunt. The probe was then removed. Patient had synchronized cardioversion x 1 with resultant sinus rhythm. Patient tolerated the procedure well. Patient was transferred to the post procedure area in stable and satisfactory condition. FINDINGS: 1. The aortic valve is tricuspid and function normally. 2. The mitral valve appears be normal with mild regurgitation. 3. Tricuspid valve appears to be normal. 4. The interatrial septum is intact. No evidence of PFO. 5. Left atrial appendage is free of clot. 6. Left ventricular size is normal and LV EF 50-55%
[2022-02-06 09:33] VITALS: TEMP 98
[2022-02-06] MEDS ORDERED: SODIUM CHLORIDE 0.9% 1,000 ML IV ONE ×2 (09:48)
[2022-02-06 13:54] VITALS: BP 137/77; PULSE 63
== END 2022-02-06 11:04 | disposition home or self-care (01) ==
LOC: CATHCVL 07:08
PROVIDERS: ATTEND Internal Medicine
DX: I48.11 Longstanding persistent atrial fibrillation (principal); I34.0 Nonrheumatic mitral (valve) insufficiency; Z79.01 Long term (current) use of anticoagulants; I10 Essential (primary) hypertension; E78.5 Hyperlipidemia, unspecified
CPT/HCPCS: 93312; 93320; 93325; 92960; 80048; 85610; J1644; J2704

== ENCOUNTER 2022-08-21 07:56 | Day surgery (SDC) | payer BC, OTHER ==
[2022-08-20 09:51] VITALS: BMI 27.1
[~2022-08-21 07:56] MED LIST changes: +DEXAMETHASONE SOD PHOSPHATE 4 MG/ML 1 ML VIAL IV ONE; -LACTATED RINGERS 1,000 ML IV SCH; +LIDOCAINE 1% (10MG/ML) FOR IV START INTRADERMA PRN; +ONDANSETRON 4 MG/2 ML VIAL IVP ONE; +ONDANSETRON 4 MG/2 ML VIAL IVP PRN; -SODIUM CHLORIDE 0.9% 1,000 ML IV SCH; +fentaNYL (PF) 50 MCG/ML 2 ML AMP IV PRN
[2022-08-21] MEDS ORDERED: SODIUM CHLORIDE 0.9% 1,000 ML IV ONE (08:13)
[2022-08-21] MEDS ORDERED: SUCCINYLCHOLINE CHLORIDE 200 MG/10 ML VIAL IV ONE (09:28)
[2022-08-21] MEDS ORDERED: fentaNYL (PF) 50 MCG/ML 2 ML AMP ONE (09:28)
[2022-08-21] MEDS ORDERED: PROPOFOL 10 MG/ML 20 ML VIAL IV ONE (09:28)
[2022-08-21] MEDS ORDERED: MIDAZOLAM 2 MG/2 ML VIAL ONE (09:28)
[2022-08-21] MEDS ORDERED: HEPARIN SODIUM,PORCINE 10,000 UNIT/ML 1 ML VIAL ONE (09:28)
[2022-08-21] MEDS ORDERED: LIDOCAINE 2% INJ 20 MG/ML (2 ML VIAL) ONE (09:28)
[2022-08-21] MEDS ORDERED: HEPARIN SOD,PORK IN 0.45% NACL 25,000 UNIT in 0.45% NACL 1 250ML.BAG IV ONE (10:00)
[2022-08-21] MEDS ORDERED: LIDOCAINE 1% INJ 10MG/ML (20 ML MDV) SQ ONE (10:02)
[2022-08-21] MEDS ORDERED: LIDOCAINE 1% INJ 10MG/ML (20 ML MDV) ONE (10:04)
[2022-08-21] MEDS ORDERED: IOPAMIDOL-250 100ML BTL IV ONE ×2 (11:24→12:04)
--- NOTE | 2022-08-21 12:51 | P.HPCAR ---
History of Present Illness This is Dr. Fernandez dictating an H/P on this patient The patient was interviewed and examined IMPRESSION / ASSESSMENT: 62-year-old male patient with persistent atrial fibrillation with significant tiredness and fatigue This is despite a controlled ventricular response EKG shows T-wave inversions in V5 and V6 and echo shows left frontal hypertrophy with preserved systolic function Failed amiodarone and electrical cardioversions History of hypertension Stable from a cardiovascular standpoint by my assessment today PLAN: Patient is stable to proceed with A. fib ablation today Continue anticoagulation Reduce amiodarone to 100 mg by mouth daily after 6 weeks HPI Continues to complain of tiredness and fatigue. He denies any chest discomfort loss of consciousness orthopnea PND or any undue shortness of breath No fever chills cough expectoration and a upper respiratory symptoms Remains in an irregular rhythm ROS: No fever chills or rigors, no cough, phlegm or expectoration, no nausea, vomiting or diarrhea, no hematuria, dysuria, no musculoskeletal complaints, no strokes or seizures, no skin lesions. EXAMINATION: 141/80 mmHg pulse rate in the 50s and 60s irregular Afebrile Breath sounds are clear no rhonchi no crackles No murmurs Heart sounds irregular REVIEW OF LABS, ECG & MEDICAL DATA Medications reviewed. On ELIQUIS, lisinopril and amiodarone Physical Exam Vitals: Vital Signs Temp Pulse Pulse Resp BP Pulse Ox 08/21/22 12:35 97.2 F L 52 L 16 109/57 100 08/21/22 08:21 97.7 F 80 16 141/80 96 Intake and Output 08/20/22 08/21/22 08/21/22 22:59 06:59 14:59 Intake Total 734 Balance 734 Intake: IV 734 Other: Weight 90.7 kg Past Medical History Past Medical History: Atrial Fibrillation, Hypertension Additional Past Medical History / Comment(s): FREQUENT NIGHT TIME URINATION., History of Any Multi-Drug Resistant Organisms: None Reported Past Surgical History: Hernia Repair Additional Past Surgical History / Comment(s): CARDIOVERSION X2. left hernia inguinal hernia,. colonoscopy Past Anesthesia/Blood Transfusion Reactions: No Reported Reaction Additional Past Anesthesia/Blood Transfusion Reaction / Comment(s): no blood transfusions Smoking Status: Former smoker - Past Family History Mother Family Medical History: Diabetes Mellitus Father Family Medical History: No Reported History Physical Examination Vital Signs Temp Pulse Pulse Resp BP Pulse Ox 08/21/22 12:35 97.2 F L 52 L 16 109/57 100 08/21/22 08:21 97.7 F 80 16 141/80 96 Intake and Output 08/20/22 08/21/22 08/21/22 22:59 06:59 14:59 Intake Total 734 Balance 734 Intake: IV 734 Other: Weight 90.7 kg Results Current Medications Generic Name Dose Route Start Last Admin Trade Name Papo PRN Reason Stop Dose Admin Fentanyl Citrate 50 mcg 08/21/22 07:00 Fentanyl (Pf) 50 Mcg/Ml 2 Ml Amp IV 08/21/22 23:00 Q3M PRN Phase I - Pain Control Sodium Chloride 1,000 mls @ 20 mls/hr 08/21/22 05:59 Saline 0.9% IV 09/20/22 06:00 .Q24H LUISA Lactated Ringer's 1,000 mls @ 20 mls/hr 08/21/22 05:59 Lactated Ringers IV 09/20/22 06:00 .Q24H LUISA Lidocaine HCl 0.1 ml 08/21/22 05:59 Lidocaine 1% (10mg/Ml) For Iv Start INTRADERMA 09/20/22 06:00 PER PROTOCOL PRN IV Start Ondansetron HCl 4 mg 08/21/22 07:00 Ondansetron 4 Mg/2 Ml Vial IVP 08/21/22 23:00 ONCE PRN Phase 1 or 2 - Nausea/Vomiting Intake and Output 08/20/22 08/21/22 08/21/22 22:59 06:59 14:59 Intake Total 734 Balance 734 Intake: IV 734 Other: Weight 90.7 kg Patient Weight 08/22/22 06:59 Weight 90.7 kg
--- NOTE | 2022-08-21 12:58 | P.EPPROC ---
- EP Procedure Note Electrophysiology Procedure Note: PROCEDURE A. fib ablation with isolation of all pulmonary veins, left atrial septum ablation and ablation of the left atrial roof DIAGNOSIS Atrial fibrillation, symptomatic, refractory to therapy with amiodarone and electrical cardioversion RESULT No left atrial appendage mass seen on intracardiac echo, LVH with asymmetric septal hypertrophy on intracardiac echo Prominent thickening of the pericardium particularly so on the posterior wall of the left atrium Very dilated right and left atria Successful A. fib ablation/pulmonary vein isolation of all veins using cryo- ablation Common left-sided pulmonary vein Complete entrance block in all 4 veins confirmed Successful ablation of the left atrial roof, Successful ablation of the left atrial septum No evidence for phrenic nerve injury Esophageal deflection YES Electrical cardioversion with a synchronized shock across the chest YES PROCEDURE DETAILS Written informed consent prior to procedure. Patient brought to the EP lab. General anesthesia given. Heparin administered. A city maintained above 300 seconds Both groins prepped and draped per protocol and venous sheaths placed. Esophagus intubated, circa catheter for temperature monitoring an endoscope for possible esophageal deflection. Phrenic nerve monitoring performed. Esophageal temperature monitoring performed. Esophageal deflection performed if circa catheter overlapping with the balloon or circa temperature less than 27.5C Intracardiac echocardiography performed. Pericardium evaluated. Left atrial appendage evaluated. Left atrium evaluated along with pulmonary veins Transseptal catheterization performed under fluoroscopic guidance and intracardi ac echo guidance Cryoablation sheath exchanged, balloon catheter along with achieve catheter placed in the left atrium. Pulmonary veins isolated in the following sequence: Left superior pulmonary vein followed by left inferior pulmonary vein, followed by right inferior pulmonary vein and lastly right superior pulmonary vein. Phrenic nerve stimulation along with capture thresholds within the SVC and right superior pulmonary vein to identify the phrenic nerve proximity to the cryo- balloon. Pulmonary veins isolated and confirmed with entrance and exit block. Phrenic nerve integrity confirmed at the end of the procedure Ablation of the left atrial roof performed with sequential lesions from the left superior to the right superior pulmonary veins. Ablation of the electrograms confirmed. This was a long Successfully completed with overlapping lesions in this very large left atrium Ablation of the left atrial septum performed with cannulation of the superior branch of the right inferior or the inferior branch of the right superior vein to achieve ablation of the posterior septum of the left atrium. Ablation of electrograms confirmed. There was a wide gap of atrial tissue between the left superior and left inferior pulmonary veins. Ablation of this tissue and the posterior septum, behind the transseptal puncture site performed Electrical cardioversion performed for persistence of atrial fibrillation despite successful ablation. Diagnostic catheters for the high right atrium, His bundle, coronary sinus placed. LA and RA pressures recorded RA pressure: 23/11/11 LA pressure: 28/12/14 Diagnostic EP study with coronary sinus pacing and recording Baseline measurements: QRS 123 ms, QT 391 ms Sinus mechanism with heart rates of 50 beats a minute post cardioversion AH 59, HV 46 Venous sheaths were removed and hemostasis assured with a closure device. Patient extubated and transferred to recovery Increase procedural time Multiple carinal lesions needed for successful cryoablation isolation of the common left-sided pulmonary vein. The left common vein was quite large. Antral level ablation was performed with a lesion delivered in the following fashion. Multiple carinal lesions applied at and antral level of the common left vein. Complete isolation achieved PROCEDURES PERFORMED Diagnostic EP study CS pacing and recording Left and right transseptal catheterization Catheter the mapping of the tachycardia Intracardiac echocardiography Pulmonary vein isolation with transseptal and comprehensive EPS, [id number] Extended procedure duration Left atrial roof line, +[id number] Linear ablation, left atrium, +[id number] Electrical cardioversion with a synchronized shock across the chest [id number]
--- NOTE | 2022-08-21 13:00 | P.PRLE ---
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 This is particularly prominent outside the posterior wall of the left atrium It is quite likely that this has made his atrial fibrillation more refractory to treatment He should continue low-dose amiodarone for now and anticoagulation and will follow with you and Dr. Adam as before Thank you for entrusting me with the care of the patient Warm regards Sincerely Elan Fernandez
[2022-08-21] MEDS: SODIUM CHLORIDE 0.9% 1,000 ML IV SCH (14:11)
[2022-08-21] MEDS: LACTATED RINGERS 1,000 ML IV SCH (14:11)
[2022-08-21] MEDS: ACETAMINOPHEN TAB 325 MG TAB PO PRN (16:54)
[2022-08-21] MEDS ORDERED: ACETAMINOPHEN IV (For NPO) 1,000 MG in EMPTY BAG 1 BAG IVPB ONE (17:00)
[2022-08-21] MEDS: APIXABAN 5 MG TAB PO SCH (20:17)
[2022-08-21] MEDS ORDERED: MONTELUKAST 10 MG TAB PO SCH (21:00)
[2022-08-21] MEDS ORDERED: lisinopriL 5 MG TAB PO SCH (21:00)
[2022-08-22] MEDS: ACETAMINOPHEN TAB 325 MG TAB PO PRN ×2 (00:22→06:25)
[2022-08-22] MEDS: LACTATED RINGERS 1,000 ML IV SCH (05:26)
[2022-08-22] MEDS: SODIUM CHLORIDE 0.9% 1,000 ML IV SCH (05:27)
[2022-08-22] MEDS: APIXABAN 5 MG TAB PO SCH (07:44)
--- NOTE | 2022-08-22 07:46 | P.DS ---
Providers Attending physician: Elan Fernandez Primary care physician: Bennie Kent MD Hospital Course: Patient is doing well. Resting comfortably in bed No sore throat no chest discomfort no dizziness no lightheadedness Ambulating to the bathroom and when medically On examination his heart sounds are normal normal S1 normal S2 no murmurs no rub Breath sounds are clear no rhonchi no crackles No JVD Blood pressure 125/68 mmHg pulse rate in the 60s Impression Persistent atrial fibrillation refractory to therapy with amiodarone Status post pulmonary vein isolation and left atrial septal ablation and left atrial roof ablation followed by electrical cardioversion Currently on oral amiodarone 200 mg daily and ELIQUIS Follow-up twelve-lead EKG today shows sinus mechanism with a mildly prolonged AL interval and deep T-wave inversions in V4 through V6 Intracardiac echo revealed evidence of pericardial thickening particularly so behind the left atrial wall posteriorly Left ventricle hypertrophy with asymmetric septal thickening and T-wave inversions in V4 through V6 Suggest Continue amiodarone 200 mg daily Continue ELIQUIS Workup for left ventricular hypertrophy with asymmetric thickening and inverted T waves on ECG, per Dr. Adam Watch for bradycardia If stable for the next several hours then he may go home and follow-up with Dr. Adam no week Plan - Discharge Summary Discharge Rx Participant: No New Discharge Prescriptions: No Action RX: Solifenacin Succinate [Vesicare] 10 mg PO HS Amiodarone [Cordarone] 200 mg PO DAILY Apixaban [Eliquis] 5 mg PO BID #60 tab RX: traZODone HCL [Desyrel] 50 mg PO HS RX: Montelukast Sodium [Singulair] 10 mg PO HS RX: lisinopriL [Zestril] 5 mg PO HS Mens Health Vitamin Pack 1 dose PO DAILY Tylenol Headache 1 dose PO DIRECTED PRN PRN Reason: Headache Discharge Medication List RX: Montelukast Sodium [Singulair] 10 mg PO HS 01/21/21 [History] RX: Solifenacin Succinate [Vesicare] 10 mg PO HS 01/21/21 [History] RX: traZODone HCL [Desyrel] 50 mg PO HS 01/21/21 [History] RX: lisinopriL [Zestril] 5 mg PO HS 06/15/21 [History] Mens Health Vitamin Pack 1 dose PO DAILY 12/11/21 [History] Tylenol Headache 1 dose PO DIRECTED PRN 12/11/21 [History] Amiodarone [Cordarone] 200 mg PO DAILY 02/02/22 [History] Apixaban [Eliquis] 5 mg PO BID #60 tab 02/06/22 [Rx] Follow up Appointment(s)/Referral(s): Salbador Adam DO [STAFF PHYSICIAN] - 1 Week Patient Instructions/Handouts: Cardiac Ablation (DC)
[2022-08-22 08:30] VITALS: BP 125/68; PULSE 67; RESP 14; TEMP 98.6
[2022-08-22] MEDS ORDERED: AMIODARONE 200 MG TAB PO SCH (09:00)
[2022-08-22 10:28] LABS: Basophils % (A) 0 %; Eosinophils # (A) 0.1 k/uL (0-0.7); Eosinophils % (A) 1 %; HCT 37.2 % (39.0-53.0); HGB 12.6 gm/dL (13.0-17.5); Lymphocytes # (A) 1.1 k/uL (1.0-4.8); Lymphocytes % (A) 17 %; MCH 32.3 pg (25.0-35.0); MCHC 33.9 g/dL (31.0-37.0); MCV 95.2 fL (80.0-100.0); Mean Platelet Volume 8.3; Monocytes # (A) 0.4 k/uL (0-1.0); Monocytes % (A) 6 %; Neutrophils # (A) 4.7 k/uL (1.3-7.7); Neutrophils % (A) 75 %; Platelet Count 170 k/uL (150-450); RBC 3.91 m/uL (4.30-5.90); RDW 13.4 % (11.5-15.5); WBC 6.3 k/uL (3.8-10.6)
[2022-08-22 10:52] LABS: African American GFR (CKD) >90 (>60 ml/min/1.73 sqM); Anion Gap 5 mmol/L; Blood Urea Nitrogen 16 mg/dL (9-20); Carbon Dioxide 28 mmol/L (22-30); Chloride 102 mmol/L (98-107); Glucose 113 mg/dL (74-99); Non-African American GFR(CKD) >90 (>60 ml/min/1.73 sqM); Potassium 3.8 mmol/L (3.5-5.1); Sodium 135 mmol/L (137-145)
== END 2022-08-22 11:26 | disposition home or self-care (01) ==
LOC: CATHEP 07:56 → 6NMEDSUR 12:12 → CATHEP 08-22 11:26
PROVIDERS: ATTEND Internal Medicine Clinical Cardiac Electrophysiology
DX: I48.0 Paroxysmal atrial fibrillation (principal); Z79.01 Long term (current) use of anticoagulants; Z79.899 Other long term (current) drug therapy; I44.2 Atrioventricular block, complete; I11.9 Hypertensive heart disease without heart failure; E78.5 Hyperlipidemia, unspecified; Z98.890 Other specified postprocedural states; Z87.891 Personal history of nicotine dependence
CPT/HCPCS: 93656; 93657; 86900; 86901; 80048; 85025; 86850; C1894 ×2; C1769; C1760; C1730 ×2; C1759; C1733; C1766; J2250; J0330; J1644 ×2; J2001 ×2; J3010; J2704; Q9966